=== PATIENT | male | born 1970 | race Caucasian/White ===

== ENCOUNTER 2018-04-10 17:07 | Emergency (ER) | payer MEDICAID, OTHER ==
[~2018-04-10] VITALS: Ht 180.3 cm; Wt 134.0 kg
[2018-04-10 18:27] LABS: BASOPHILS % (AUTO) 0.3 % (0-1); EOSINOPHILS # (AUTO) 0.1 X10'3 (0-0.9); EOSINOPHILS % (AUTO) 0.6 % (0-6); HEMOGLOBIN 13.7 g/dl (14.0-17.9); LYMPHOCYTES # (AUTO) 1.6 X10'3 (1.1-4.8); LYMPHOCYTES % (AUTO) 14.7 % (21-51); MEAN CORPUSCULAR HEMOGLOBIN 28.7 PG (27.0-31.0); MEAN CORPUSCULAR HGB CONC 32.6 % (33.0-36.5); MEAN PLATELET VOLUME 8.1 FL (7.4-10.4); MONOCYTES # (AUTO) 0.7 X10'3 (0-0.9); NEUTROPHILS # (AUTO) 8.5 X10'3 (1.8-7.7); NEUTROPHILS % (AUTO) 78.4 % (42-75); PLATELET COUNT 228 X10'3 (140-440); RED BLOOD COUNT 4.77 X10'6 (4.70-6.10); RED CELL DISTRIBUTION WIDTH 14.7 % (11.5-14.5); WHITE BLOOD COUNT 10.8 X10'3 (4.5-11.0)
[2018-04-10 18:42] LABS: PROTHROMBIN TIME 10.5 SECONDS (9.0-12.0)
[2018-04-10 18:45] LABS: ALANINE AMINOTRANSFERASE 96 U/L (12-78); ALBUMIN 3.6 G/DL (3.4-5.0); ALBUMIN/GLOBULIN RATIO 0.9 (1.1-1.5); ALKALINE PHOSPHATASE 158 IU/L (46-116); ANION GAP 13 (8-16); ASPARTATE AMINO TRANSFERASE 96 U/L (10-37); BILIRUBIN,TOTAL 0.6 MG/DL (0.1-1.0); BLOOD UREA NITROGEN 12 MG/DL (7-18); BUN/CREATININE RATIO 15.4 (5.4-32.0); CHLORIDE 104 MMOL/L (99-107); CREATININE 0.78 MG/DL (0.60-1.10); GLUCOSE 124 MG/DL (70-104); POTASSIUM 3.6 MMOL/L (3.5-5.1); SODIUM 142 MMOL/L (135-145); TOTAL CARBON DIOXIDE 24.7 MMOL/L (24-32); TOTAL PROTEIN 7.4 G/DL (6.4-8.2); eGFR > 90 ML/MIN
[2018-04-10 19:17] LABS: CLARITY,URINE CLEAR (Clear); COLOR,URINE YELLOW (Yellow); GLUCOSE, URINE NEGATIVE (Neg); KETONES,URINE NEGATIVE (Neg); LEUKOCYTE ESTERASE ,URINE NEGATIVE (Neg); NITRITES, URINE NEGATIVE (Neg); OCCULT BLOOD,URINE NEGATIVE (Neg); PH,URINE 8.5 (4.8-8.0); PROTEIN,URINE 30 mg/dl (Neg)
[2018-04-10 19:29] LABS: UA COLLECTION TYPE CLN CATCH MIDSTREAM
[2018-04-10 19:30] VITALS: BP 156/93
[2018-04-10 19:30] LABS: AMORPHOUS PHOSPHATES 2+; BACTERIA,URINE NONE SEEN /HPF (Neg); RBC,URINE 0-2 /HPF (0-2); SQUAMOUS EPITHELIAL CELL,UR FEW /LPF (FEW); WBC,URINE NONE SEEN /HPF (0-4)
== END 2018-04-10 20:01 | disposition home or self-care (01) ==
LOC: ER 17:07
DX: R10.11 Right upper quadrant pain (principal); R10.12 Left upper quadrant pain; R94.5 Abnormal results of liver function studies; E66.9 Obesity, unspecified; F17.200 Nicotine dependence, unspecified, uncomplicated
CPT/HCPCS: 36415; 80053; 81001; 85025; 85610; 99283